=== PATIENT | male | born 1960 | race Two or more races ===

== ENCOUNTER → 2019-04-23 | Day surgery (SDC) | payer OTHER ==
[~2019-04-23] VITALS: Ht 175.3 cm; Wt 70.3 kg
[~2019-04-23] MED LIST: FLUMAZENIL 0.1 MG/ML INJ 10ML MDV IV ONE; MIDAZOLAM HCL 5 MG/ML-1ML VIAL ONE; NALOXONE HCL 0.4 MG/ML VIAL ONE; SODIUM CHLORIDE LOCK 0 ML ONE; SODIUM CHLORIDE LOCK 10 ML ONE; diphenhdrAMINE HCL 50 MG/1 ML VL ONE; fentaNYL CITRATE 100 MCG/2 ML VL ONE
[2019-04-23 06:58] LABS: Basophils # (auto) 0 uL; Basophils % (auto) 0.6 % (0.0-2.0); Eosinophils # (auto) 0.1 uL; Eosinophils % (auto) 0.8 % (0.0-7.0); Hematocrit 51.8 % (41.0-53.0); Hemoglobin 17.4 g/dL (13.5-17.5); Lymphocytes # (auto) 1.7 uL; Lymphocytes % (auto) 25.9 % (10.0-50.0); Mean Corpuscular Hemoglobin 31.2 pg (28.0-32.0); Mean Corpuscular Hgb Conc. 33.6 g/dL (32.0-36.0); Mean Corpuscular Volume 92.7 fL (80.0-100.0); Monocytes # (auto) 0.7 uL; Monocytes % (auto) 11.2 % (0.0-12.0); Neutrophils % (auto) 61.5 % (37.0-80.0); Nucleated Red Blood Cells % 0.2 %; Platelet Count (auto) 219 10^3/uL (140-450); Red Blood Cells 5.59 10^6/uL (4.5-5.90); Red Cell Distribution Width 14.7 % (11.8-14.3); White Blood Cell 6.5 10^3/uL (4.4-10.8)
[2019-04-23 07:13] LABS: INR 1.08 (0.9-1.15); Partial Thromboplastin Time 24.9 sec (23.64-32.05)
[2019-04-23] MEDS: fentaNYL CITRATE 100 MCG/2 ML VL ONE ×2 (09:13→09:17)
[2019-04-23] MEDS: MIDAZOLAM HCL 5 MG/ML-1ML VIAL ONE ×2 (09:13→09:17)
[2019-04-23 09:58] VITALS: BP 130/75
== END | disposition home or self-care (01) ==
LOC: EEVIPCON 05:40 → GI 05:40
PROVIDERS: ATTEND Internal Medicine Gastroenterology
DX: K51.90 Ulcerative colitis, unspecified, without complications (principal); B19.10 Unspecified viral hepatitis B without hepatic coma; Z87.891 Personal history of nicotine dependence
CPT/HCPCS: 36415; 45380; 85025; 85610; 85730; 88305; 88342; J1200; J2250; J3010; J7030; 99152